=== PATIENT | female | born 1975 | race Two or more races ===

== ENCOUNTER 2022-03-12 21:58 | Inpatient (IN) | payer OTHER ==
[~2022-03-12] VITALS: Ht 160 cm; Wt 117.9 kg
== END 2022-03-18 22:13 | disposition home or self-care (01) | DRG 392 ==
LOC: ER 21:58 → MEDJ 03-13 10:12
PROVIDERS: ADMIT Internal Medicine; ATTEND Internal Medicine
PROC: BW21YZZ Computerized Tomography (CT Scan) of Abdomen and Pelvis using Other Contrast (ICD-10-PCS; principal; 2022-03-13)
DX: K57.32 Diverticulitis of large intestine without perforation or abscess without bleeding (principal); Z68.42 Body mass index [BMI] 45.0-49.9, adult; E66.01 Morbid (severe) obesity due to excess calories

== ENCOUNTER 2022-04-08 11:16 | Inpatient (IN) | payer OTHER ==
[~2022-04-08] VITALS: Ht 152.4 cm; Wt 113.4 kg
[2022-04-13] MEDS ORDERED: PERCOCET 5-3251 EACH PO (16:03)
== END 2022-04-13 17:57 | disposition home or self-care (01) | DRG 331 ==
LOC: O/R 04-10 05:35 → SURG 04-10 12:30 → SURH 04-10 18:07
PROVIDERS: ADMIT Surgery; ATTEND Surgery
PROC: 0DBP4ZZ Excision of Rectum, Percutaneous Endoscopic Approach (ICD-10-PCS; 2022-04-10)
PROC: 0DJD8ZZ Inspection of Lower Intestinal Tract, Via Natural or Artificial Opening Endoscopic (ICD-10-PCS; 2022-04-10)
PROC: 0DTN4ZZ Resection of Sigmoid Colon, Percutaneous Endoscopic Approach (ICD-10-PCS; principal; 2022-04-10 15:00)
DX: K57.32 Diverticulitis of large intestine without perforation or abscess without bleeding (principal); R19.4 Change in bowel habit; R10.32 Left lower quadrant pain; E66.8 Other obesity